=== PATIENT | female | born 1960 | race Caucasian/White ===

== ENCOUNTER 2024-08-27 10:50 | Emergency (ER) | payer MEDICARE, BC, SELFPAY ==
[2024-08-27 11:56] VITALS: BP 157/88; PULSE 72; RESP 19; TEMP 36.7; O2SAT 98; BMI 28.1
[2024-08-27] MEDS: AMOXICILLIN/POT CLAV 875 TABLET 1 TAB PO (12:44)
--- NOTE | 2024-08-27 12:52 | EDNOTE_ITS ---
<Statement entered by Joan Acuña MD - 08/27/24 17:34> As co-signing physician, I was present and available for consult prn. I concur with the plan and care as documented by the midlevel provider. ED Wound/Laceration-RME/HPI General Chief Complaint: Wound/Laceration Stated Complaint: WOUNDS TO LEFT ARM Time Seen by Provider: 08/27/24 11:29 Arrival date/time: 08/27/24 10:50 RME / HPI RME / HPI narrative: 64-year-old female patient came in for evaluation regarding left upper extremity skin tear. Patient was playing with her dog got jumped by her dog resulting in multiple skin tear to the left upper extremity. Severity of symptoms moderate. Patient's tetanus vaccination is up-to-date. No medication was taken prior to arrival. Incident happened a few minutes prior to ER visit. Related Data Home Medications ?Medication ?Instructions ?Recorded ?Confirmed famotidine 20 mg tablet 20 mg PO QDAY 11/09/1711/02 meloxicam 15 mg tablet 15 mg PO QDAY 11/09/1711/02 gabapentin PO 11/03/19 11/03/19 propranolol 10 mg tablet 10 mg PO QDAY 11/03/1911/02 Previous Rx's ?Medication ?Instructions ?Recorded amoxicillin 875 mg-potassium 1 tab PO BID #14 tabs clavulanate 125 mg tablet Allergies Allergy/AdvReac Type Severity Reaction Status Date / Time No Known Allergies Allergy Verified 07/18/20 16:32 Review of Systems Review of Systems Narrative Review of Systems: Review of system reviewed and within normal limits except mentioned in HPI ED Exam Narrative Physical exam: VITAL SIGNS: Reviewed. GENERAL APPEARANCE: Alert and interactive, follows commands, no acute distress, HEAD AND FACE: Non-traumatic. ENT: PERRL, pink conjunctivitis, eyelid no trauma, Mucous membrane moist. NECK: Supple, nontender, no nuchal rigidity. CHEST: No tenderness, no crepitus, no paradoxical movement, no retractions. LUNGS: Clear, well ventilated, symmetric, no rales, no wheezing, no ronchi, no stridor, good breath sounds bilaterally. HEART: Regular rate, regular rhythm, no murmur, no gallops. ABDOMEN: Soft, positive bowel sounds, nondistended, no guarding, nontender, no rebound, no masses, RECTAL: Deferred. GENITAL: Deferred. NEUROLOGICAL: Gross motor function intact sensory function intact, Appropriate for age. MUSCULOSKELETAL: low back nontender, full range of motion. EXTREMITIES: Multiple skin tear noted on the left arm and forearm, measuring ranges from 4 cm to 1 cm, full range of motion. Distal neurovascular status intact left upper extremity SKIN: Color pink, dry, no rash, no lacerations, no abrasions, no contusions. LYMPHATICS: Deferred. Course Quality Measures none Orders Category Date Time Status Amoxicillin/Pot Clav 875 [Augmentin 875] Med 08/27/24 12:35 Discontinued 1 tab PO X1 ONE Vital Signs Vital signs: Vital Signs Temperature 98.1 F 08/27/24 11:56 Pulse Rate 72 08/27/24 11:56 Respiratory Rate 19 08/27/24 11:56 Blood Pressure 157/88 H 08/27/24 11:56 Pulse Oximetry (%) 98 08/27/24 11:56 Oxygen Delivery Method Room Air 08/27/24 11:56 Wound / Laceration MDM Narrative MDM Narrative:: 64-year-old female patient came in for evaluation regarding left upper extremity skin tear. Patient was playing with her dog got jumped by her dog resulting in multiple skin tear to the left upper extremity. Severity of symptoms moderate. Patient's tetanus vaccination is up-to-date. No medication was taken prior to arrival. Incident happened a few minutes prior to ER visit. Wound cleansed with 2 L of NS, and Betadine, carefully approximating the skin tear was Steri-Stripped. Patient tolerated the procedure well. Patient was also given Augmentin in the ED. Was advised not to remove the Steri-Strips until his. Probably in 5 to 7 days. She can change the top dressing only. Patient data External records reviewed:: None Clinical information provided by:: patient and family Social determinants that could affect healthcare access:: none Patient has the following chronic illnesses:: Hypertension How is presenting disease/condition affected by chronic disease/condition?: uneffected by Evaluation data The following diagnostics were reviewed and interpreted by me:: other (specify) (None) Lab and/or radiology exams considered but not ordered:: None Interpretation Summary: None Medications / Prescriptions Medications or Prescriptions considered but not ordered:: None Medication administrations:: Medication Administration History Discontinued Medications Amoxicillin/Clavulanate Potassium (Amoxicillin/Pot Clav 875 Tablet) 1 tab PO X1 ONE Stop: 08/27/24 12:36 Last Admin: 08/27/24 12:44 Dose: 1 tab Documented By: DO Augmentin Consultations Consultation(s) initiated? (list below): No Diagnosis Wound Differential Diagnosis: laceration and avulsion of skin Most likely diagnosis given after review of the tests above:: Skin tear left upper extremity Admission Indicated Admission indicated?: not indicated Admission Request Was there a request for admission?: No Disposition Plan Disposition Plan: Discharge Discharge Attestation Discharge Attestation: The patient and all family members were given an opportunity to ask questions and understood the discharge instructions. Discharge instructions specifically effects, indications for sooner follow up or return to the emergency department, and the expected course of current diagnosis. Patient condition: Stable Discharge Plan Plan Patient Disposition: HOME (Self Care) Disposition Comment: stable Prescriptions/Referrals Prescriptions/Med Rec: New amoxicillin-pot clavulanate 875-125 mg tablet 1 tab PO BID Qty: 14 0RF No Action propranolol 10 mg tablet 10 mg PO QDAY gabapentin PO meloxicam 15 mg Tablet 15 mg PO QDAY famotidine 20 mg Tablet 20 mg PO QDAY Problem List Clinical Impression: Skin tear of upper extremity Patient/Caregiver Discharge Instructions Discharge Activity: activity as tolerated Education Materials: ED Scar Tips to Minimize Additional Instructions: Thank you for the opportunity for serving you today. You are stable for discharged . You are advised to: Follow-up with your PCP in 1 to 2 days Return to ED for worsening of symptoms Increase oral fluids Take medication as prescribed You can change the top dressing if it gets soaked, with blood, but do not remove the sterile strip until it falls off Do not get the skin tear wet for the next 7 days Print Language: Turkmen Stand Alone Forms: Felicia Award Info., Patient Portal Info Letter VERONICA/LIANNA Supervising Physician VERONICA/LIANNA Supervising Physician: MD Arianne
== END 2024-08-27 13:06 | disposition home or self-care (01) ==
LOC: SERX 13:14
PROVIDERS: Emergency Provider Emergency Medicine; PCP Internal Medicine Hospice and Palliative Medicine
DX: S41.112A Laceration without foreign body of left upper arm, initial encounter (principal); W54.8XXA Other contact with dog, initial encounter
CPT/HCPCS: 99282; A9270